=== PATIENT | female | born 1950 | race Caucasian/White ===

== ENCOUNTER → 2017-03-14 | Outpatient (CLI) | payer BC ==
[2017-03-14 10:03] LABS: ABSOLUTE BASOPHILS # (AUTO) 0.1 10^3/uL (0.0-0.2); ABSOLUTE EOSINOPHILS # (AUTO) 0.3 10^3/uL (0.0-0.6); ABSOLUTE LYMPHOCYTES (AUTO) 2.2 10^3/uL (0.5-4.7); ABSOLUTE MONOCYTES (AUTO) 0.4 10^3/uL (0.1-1.4); EOSINOPHILS % (AUTO) 4.2 % (0-6); HEMATOCRIT 40.8 % (36.0-47.0); HEMOGLOBIN 13.4 g/dL (12.0-15.5); HGB HCT DIFFERENCE -0.6; LYMPHOCYTES % (AUTO) 31.6 % (13-45); MEAN CORPUSCULAR HEMOGLOBIN 24.3 pg (27.0-33.4); MEAN CORPUSCULAR HGB CONC 32.9 g/dL (32.0-36.0); MEAN CORPUSCULAR VOLUME 74 fl (80-97); MONOCYTES % (AUTO) 6.2 % (3-13); RED BLOOD COUNT 5.52 10^6/uL (3.72-5.28); RED CELL DISTRIBUTION WIDTH 14.5 % (11.5-14.0); WHITE BLOOD COUNT 7.1 10^3/uL (4.0-10.5)
[2017-03-14 10:25] LABS: ALANINE AMINOTRANSFERASE 30 U/L (9-52); ALBUMIN 4.2 g/dL (3.5-5.0); ALKALINE PHOSPHATASE 82 U/L (38-126); ANION GAP 10 (5-19); ASPARTATE AMINO TRANSFERASE 25 U/L (14-36); BILIRUBIN,DIRECT 0.4 mg/dL (0.0-0.4); BILIRUBIN,TOTAL 0.7 mg/dL (0.2-1.3); BLOOD UREA NITROGEN 15 mg/dL (7-20); CALCIUM 10.7 mg/dL (8.4-10.2); CARBON DIOXIDE 29 mmol/L (22-30); CHLORIDE 102 mmol/L (98-107); CHOLESTEROL 237.78 mg/dL (0-200); Direct HDL 44 mg/dL (>40); GLUCOSE 108 mg/dL (75-110); POTASSIUM 3.9 mmol/L (3.6-5.0); SODIUM 140.9 mmol/L (137-145); TOTAL PROTEIN 7.1 g/dL (6.3-8.2); TRIGLYCERIDES 171 mg/dL (<150)
[2017-03-14 10:35] LABS: DIRECT LDL 151 mg/dL (<100)
[2017-03-14 10:41] LABS: VLDL CHOLESTEROL 34.2 mg/dL (10-31)
== END ==
LOC: OD 09:03
PROVIDERS: ATTEND Internal Medicine
DX: I10 Essential (primary) hypertension (principal); J44.9 Chronic obstructive pulmonary disease, unspecified; E11.9 Type 2 diabetes mellitus without complications; E78.5 Hyperlipidemia, unspecified; E03.9 Hypothyroidism, unspecified
CPT/HCPCS: 36415; 80053; 80061; 83036; 84443; 85025

== ENCOUNTER → 2017-05-20 | Outpatient (CLI) | payer BC ==
--- NOTE | 2017-05-20 17:33 | RADIOLOGY REPORT (SQ) ---
EXAM DESCRIPTION: VENOUS UNILATERAL LOWER COMPLETED DATE/TIME: 05/20/2017 5:25 pm REASON FOR STUDY: LLE PAIN/ SWELLING M79.662 PAIN IN LEFT LOWER LEG COMPARISON: 11/29/2013 TECHNIQUE: Dynamic and static leon scale and color images acquired of the left leg venous system. Se lected spectral images acquired with additional compression and augmentation maneuvers. The contralat eral common femoral vein and saphenofemoral junction were also imaged. Images stored on PACS. LIMITATIONS: None. FINDINGS: COMMON FEMORAL: Normal phasicity, compression and augmentation. No visualized echogenic ma terial on leon scale. No defects on color images. FEMORAL: Normal compression and augmentation. No visualized echogenic material on leon scale. No defe cts on color images. POPLITEAL: Normal compression, augmentation. No visualized echogenic material on leon scale. No defec ts on color images. CALF VESSELS: Normal compression, augmentation. No visualized echogenic material on leon scale. No de fects on color images. GSV and SSV: Normal compression, augmentation. No visualized echogenic material on leon scale. No def ects on color images. ANY DEEP VENOUS INSUFFICIENCY: Not evaluated. ANY EVIDENCE OF POPLITEAL CYST: No. OTHER: No other significant finding. CONTRALATERAL COMMON FEMORAL VEIN AND SAPHENOFEMORAL JUNCTION: Normal phasicity, compression and augmentation. No visualized echogenic material on leon scale. No de fects on color images. IMPRESSION: NO EVIDENCE OF DVT OR SVT IN THE LEFT LEG. TECHNICAL DOCUMENTATION: JOB ID: [id number] [employer]- All Rights Reserved
== END ==
LOC: SP 16:40
PROVIDERS: ATTEND Internal Medicine
DX: M79.662 Pain in left lower leg (principal); I82.402 Acute embolism and thrombosis of unspecified deep veins of left lower extremity
CPT/HCPCS: 93971

== ENCOUNTER 2019-02-26 19:19 | Inpatient (IN) | payer BC, MEDICARE ==
[2019-02-26] MEDS ORDERED: MORPHINE SULFATE 10 MG/ML INJ IV ONE (20:07)
[2019-02-26] MEDS ORDERED: ONDANSETRON HCL INJ/PF 4 MG/2 ML SDV IV ONE (20:07)
--- NOTE | 2019-02-26 20:09 | ER Document Report ---
ED Medical Screen (RME) - General Chief Complaint: Abdominal Pain Stated Complaint: ABDOMINAL PAIN Time Seen by Provider: 02/26/19 20:07 Primary Care Provider: JOHN CLANCY MD [Primary Care Provider] - Follow up as needed Mode of Arrival: Ambulatory Information source: Patient Notes: Patient presents complaining of lower abdominal pain that woke her up at 1:00 this morning. Patient complains of persistent lower pelvic pain and low back pain. Patient does complain of nausea. Patient denies any fever, vomiting, diarrhea or urinary symptoms. hx: Melanoma, diabetes, hypertension, hypothyroid, diverticulosis sx: Tonsillectomy, appendectomy, hysterectomy, cervical fusion, bowel resection, cholecystectomy I have greeted and performed a rapid initial assessment of this patient. A comprehensive ED assessment and evaluation of the patient, analysis of test results and completion of the medical decision making process will be conducted by additional ED providers. TRAVEL OUTSIDE OF THE [place] IN LAST 30 DAYS: No - Related Data Allergies/Adverse Reactions: amoxicillin trihydrate [From Augmentin] Allergy (Unknown, Verified 09/18/14 14:14) aspirin [Aspirin] Allergy (Unknown, Verified 09/18/14 14:14) Potassium Clavulanate * [From Augmentin] Allergy (Unknown, Verified 09/18/14 14:14) ivp contrast Allergy (Severe, Uncoded 09/18/14 14:14) rash / itching Past Medical History - Social History Chew tobacco use (# tins/day): No Frequency of alcohol use: None Drug Abuse: None - Past Medical History Cardiac Medical History: Reports: Hx Hypertension Pulmonary Medical History: Reports: Hx COPD - bronchiectasis Denies: Hx Tuberculosis Endocrine Medical History: Reports: Hx Diabetes Mellitus Type 2, Hx Hypothyroidism Renal/ Medical History: Denies: Hx Peritoneal Dialysis Past Surgical History: Reports: Hx Hysterectomy, Hx Tonsillectomy. Denies: Hx Pacemaker - Immunizations Hx Diphtheria, Pertussis, Tetanus Vaccination: Yes Physical Exam - Vital signs Vitals: Temp Pulse Resp BP Pulse Ox 98.4 F 94 20 180/94 H 93 02/26/19 19:26 02/26/19 19:26 02/26/19 19:26 02/26/19 19:26 02/26/19 19:26 - Abdominal Tenderness: Tender - Lower pelvic tenderness Course - Vital Signs Vital signs: Temp Pulse Resp BP Pulse Ox 98.4 F 94 20 180/94 H 93 02/26/19 19:26 02/26/19 19:26 02/26/19 19:26 02/26/19 19:26 02/26/19 19:26 Doctor's Discharge - Discharge Referrals: JOHN CLANCY MD [Primary Care Provider] - Follow up as needed
[2019-02-26 20:48] LABS: ABSOLUTE BASOPHILS # (AUTO) 0.1 10^3/uL (0.0-0.2); ABSOLUTE EOSINOPHILS # (AUTO) 0.3 10^3/uL (0.0-0.6); ABSOLUTE LYMPHOCYTES (AUTO) 2.7 10^3/uL (0.5-4.7); ABSOLUTE MONOCYTES (AUTO) 0.8 10^3/uL (0.1-1.4); ABSOLUTE NEUT (AUTO) 8.4 10^3/uL (1.7-8.2); EOSINOPHILS % (AUTO) 2.4 % (0-6); HEMATOCRIT 42.8 % (36.0-47.0); HEMOGLOBIN 13.8 g/dL (12.0-15.5); LYMPHOCYTES % (AUTO) 22.1 % (13-45); MEAN CORPUSCULAR HEMOGLOBIN 24.1 pg (27.0-33.4); MEAN CORPUSCULAR HGB CONC 32.4 g/dL (32.0-36.0); MEAN CORPUSCULAR VOLUME 75 fl (80-97); MONOCYTES % (AUTO) 6.5 % (3-13); PLATELET COUNT 365 10^3/uL (150-450); RED BLOOD COUNT 5.74 10^6/uL (3.72-5.28); RED CELL DISTRIBUTION WIDTH 14.2 % (11.5-14.0); TOTAL CELLS COUNTED % (AUTO) 100 %; WHITE BLOOD COUNT 12.4 10^3/uL (4.0-10.5)
[2019-02-26 21:03] LABS: APPEARANCE,URINE SLIGHTLY-CLOUDY; BILIRUBIN,URINE NEGATIVE (NEGATIVE); COLOR,URINE YELLOW; GLUCOSE, URINE NEGATIVE (NEGATIVE); KETONES,URINE NEGATIVE (NEGATIVE); LEUKOCYTE ESTERASE,URINE TRACE (NEGATIVE); NITRITE,URINE NEGATIVE (NEGATIVE); PROTEIN,URINE NEGATIVE (NEGATIVE); URINE SPECIFIC GRAVITY 1.015; UROBILINOGEN,URINE NEGATIVE mg/dL (<2.0)
[2019-02-26 21:06] LABS: ALANINE AMINOTRANSFERASE 22 U/L (9-52); ALBUMIN 4.5 g/dL (3.5-5.0); ALKALINE PHOSPHATASE 75 U/L (38-126); ANION GAP 12 (5-19); ASPARTATE AMINO TRANSFERASE 22 U/L (14-36); BILIRUBIN,DIRECT 0.4 mg/dL (0.0-0.4); BILIRUBIN,TOTAL 0.5 mg/dL (0.2-1.3); BLOOD UREA NITROGEN 12 mg/dL (7-20); CALCIUM 10.9 mg/dL (8.4-10.2); CARBON DIOXIDE 32 mmol/L (22-30); CHLORIDE 96 mmol/L (98-107); GLUCOSE 156 mg/dL (75-110); LIPASE 289.8 U/L (23-300); POTASSIUM 3.6 mmol/L (3.6-5.0); SODIUM 140.1 mmol/L (137-145); TOTAL PROTEIN 7.7 g/dL (6.3-8.2)
[2019-02-27] MEDS ORDERED: NORMAL SALINE 1000 ML 1,000 ML IV ONE (00:49)
[2019-02-27] MEDS ORDERED: ONDANSETRON HCL INJ/PF 4 MG/2 ML SDV IV ONE ×2 (00:49→04:47)
[2019-02-27] MEDS: MORPHINE SULFATE 10 MG/ML INJ IV PRN ×2 (00:55→03:49)
--- NOTE | 2019-02-27 00:59 | ER Document Report ---
ED General - General Chief Complaint: Abdominal Pain Stated Complaint: ABDOMINAL PAIN Time Seen by Provider: 02/26/19 20:07 Mode of Arrival: Ambulatory Notes: Patient is a 68-year-old female past medical history of hypertension, hypothyroidism, surgical history of cholecystectomy, partial bowel resection, hysterectomy, appendectomy, presents with complaints of roughly 24 hours of progressively worsening lower abdominal pain. Describes the pain as being gradual in onset, worsening since that time. Is a throbbing, severe, constant pain diffusely to the abdomen but worse in the lower abdomen. States that moving "almost anything" worsens the pain at this time. Nothing improves the pain. Denies a history of similar pains in the past. Has been nauseated but has not vomited. Has had a bowel movement within the past 24 hours that was nonbloody. TRAVEL OUTSIDE OF THE [place] IN LAST 30 DAYS: No - Related Data Allergies/Adverse Reactions: amoxicillin trihydrate [From Augmentin] Allergy (Unknown, Verified 09/18/14 14:14) aspirin [Aspirin] Allergy (Unknown, Verified 09/18/14 14:14) Potassium Clavulanate * [From Augmentin] Allergy (Unknown, Verified 09/18/14 14:14) ivp contrast Allergy (Severe, Uncoded 09/18/14 14:14) rash / itching Past Medical History - General Information source: Patient - Social History Smoking Status: Never Smoker Chew tobacco use (# tins/day): No Frequency of alcohol use: None Drug Abuse: None Lives with: Family Family History: Reviewed & Not Pertinent Patient has suicidal ideation: No Patient has homicidal ideation: No - Past Medical History Cardiac Medical History: Reports: Hx Hypercholesterolemia, Hx Hypertension Pulmonary Medical History: Reports: Hx COPD - bronchiectasis Denies: Hx Tuberculosis Endocrine Medical History: Reports: Hx Diabetes Mellitus Type 2, Hx Hypothyroidism Renal/ Medical History: Denies: Hx Peritoneal Dialysis GI Medical History: Reports: Hx Gastroesophageal Reflux Disease Musculoskeletal Medical History: Reports Hx Arthritis - RA Past Surgical History: Reports: Hx Abdominal Surgery - bowel resection, Hx Appendectomy, Hx Hysterectomy, Hx Orthopedic Surgery - spinal fusion, Hx Tonsillectomy. Denies: Hx Pacemaker - Immunizations Hx Diphtheria, Pertussis, Tetanus Vaccination: Yes Hx Pneumococcal Vaccination: 08/20/11 Review of Systems - Review of Systems Notes: Constitutional: Negative for fever. HENT: Negative for sore throat. Eyes: Negative for visual changes. Cardiovascular: Negative for chest pain. Respiratory: Negative for shortness of breath. Gastrointestinal: Positive for abdominal pain and nausea Genitourinary: Negative for dysuria. Musculoskeletal: Negative for back pain. Skin: Negative for rash. Neurological: Negative for headaches, weakness or numbness. 10 point ROS negative except as marked above and in HPI. Physical Exam - Vital signs Vitals: Temp Pulse Resp BP Pulse Ox 98.4 F 94 20 180/94 H 93 02/26/19 19:26 02/26/19 19:26 02/26/19 19:26 02/26/19 19:26 02/26/19 19:26 Interpretation: Hypertensive Notes: PHYSICAL EXAMINATION: GENERAL: Appears moderately unwell but in no acute distress HEAD: Atraumatic, normocephalic. EYES: Pupils equal round and reactive to light, extraocular movements intact, sclera anicteric, conjunctiva are normal. ENT: nares patent, oropharynx clear without exudates. Moist mucous membranes. NECK: Normal range of motion, supple without lymphadenopathy LUNGS: Breath sounds clear to auscultation bilaterally and equal. No wheezes rales or rhonchi. HEART: Regular rate and rhythm without murmurs ABDOMEN: Somewhat distended abdomen, firm particularly on palpation of the lower quadrants. Globally tender much more tender to the lower quadrants. No rebou nd. EXTREMITIES: Normal range of motion, no pitting or edema. No cyanosis. NEUROLOGICAL: No focal neurological deficits. Moves all extremities spontaneously and on command. PSYCH: Normal mood, normal affect. SKIN: Warm, Dry, normal turgor, no rashes or lesions noted. Course - Re-evaluation Re-evalutation: 02/27/19 00:59 Patient presents with generalized lower abdominal pain with some abdominal rigidity particularly in the right lower, suprapubic and left lower quadrants. Patient has a history of a cholecystectomy, appendectomy, and partial bowel resection secondary to diverticulitis. Differential at this point includes colonic rupture, intra-abdominal abscess, possible bowel obstruction although patient is not vomiting. Patient has anaphylactic reaction to intravenous contrast and iodine-based oral contrast. Given the degree of concern on her abdominal exam as well as no read available option to provide IV or oral contrast will proceed with CT without oral or IV contrast. Labs show leukocytosis, otherwise unremarkable. IV morphine, Zofran, fluids have all been initiated. Patient's last oral intake was approximately 9 hours ago. 02/27/19 03:12 CT scan of the abdomen pelvis does demonstrate findings consistent with a bowel obstruction. Patient is continually nauseated abdominal exam unchanged. I did discuss with the surgeon on-call Dr. Peter who is accepted the patient for evaluation and hospitalization. NG tube will be placed using Versed for sedation. - Vital Signs Vital signs: Temp Pulse Resp BP Pulse Ox 98.4 F 94 20 180/94 H 91 L 02/26/19 19:26 02/26/19 19:26 02/27/19 04:00 02/26/19 19:26 02/27/19 04:00 - Laboratory Result Diagrams: 02/26/19 20:21 02/26/19 20:21 Laboratory results interpreted by me: 02/26/19 02/26/19 02/26/19 20:21 20:21 20:21 WBC 12.4 H RBC 5.74 H MCV 75 L MCH 24.1 L RDW 14.2 H Absolute Neutrophils 8.4 H Chloride 96 L Carbon Dioxide 32 H Glucose 156 H Calcium 10.9 H Urine Blood SMALL H Ur Leukocyte Esterase TRACE H - Diagnostic Test Radiology reviewed: Reports reviewed Discharge - Discharge Clinical Impression: Lower abdominal pain, Nausea Bowel obstruction Qualifiers: Intestinal obstruction type: unspecified Intestinal obstruction extent: unspecified extent Qualified Code(s): K56.609 - Unspecified intestinal obstruction, unspecified as to partial versus complete obstruction Condition: Fair Disposition: ADMITTED INPATIENT Admitting Provider: Surgicalist Unit Admitted: Surgical Floor
--- NOTE | 2019-02-27 02:25 | RADIOLOGY REPORT (SQ) ---
EXAM DESCRIPTION: CT ABDOMEN PELVIS WITHOUT IV CONTRAST COMPLETED DATE/TME: 02/27/2019 00:49 CLINICAL HISTORY: 68 years, Female, diffuse abdominal pain, abdominal rigidity COMPARISON: 12/24/2010 TECHNIQUE: Axial CT images of the abdomen and pelvis were obtained without contrast. Sagittal and coronal reformats were performed. DLP 790 Images stored on PACS. All CT scanners at this facility use dose modulation, iterative reconstruction, and/or weight based dosing when appropriate to reduce radiation dose to as low as reasonably achievable (ALARA). [facility]: Dose Right [facility]: CareDose [facility]: Dose Right [facility]: Teradose 4D [facility]: [employer] LIMITATIONS: None. FINDINGS: The lung bases are clear. Cholecystectomy. The liver, pancreas, spleen, and adrenal glands are unremarkable. There is a nonobstructing calcification along the upper pole of the right kidney. There are left renal cysts that measure up to 2.2 cm in size. No evidence of hydronephrosis bilaterally. There is no intraperitoneal free air or fluid. There is no lymphadenopathy. The abdominal aorta is normal in caliber. The stomach is unremarkable. There are dilated loops of small bowel along the left side of the abdomen which measure up to 3.9 cm in diameter. The appendix is not uniquely identified. The colon is incompletely distended. There are postsurgical changes to the rectosigmoid junction. The urinary bladder is unremarkable. Hysterectomy. There are no lytic or blastic bone lesions. IMPRESSION: Small bowel obstruction. TECHNICAL DOCUMENTATION: Quality ID # 436: Final reports with documentation of one or more dose reduction techniques (e.g., Automated exposure control, adjustment of the mA and/or kV according to patient size, use of iterative reconstruction technique) copyright 2011 [employer]- All Rights Reserved
[2019-02-27] MEDS ORDERED: MIDAZOLAM 2 MG/2 ML INJ IV ONE (02:48)
--- NOTE | 2019-02-27 04:23 | RADIOLOGY REPORT (SQ) ---
EXAM DESCRIPTION: XR CHEST 1 VIEW COMPLETED DATE/TME: 02/27/2019 00:00 CLINICAL HISTORY: 68 years Female, NG Tube Placement COMPARISON: January 24, 2016. TECHNIQUE/LIMITATION: Targeted exam for enteric tube assessment. FINDINGS: Adequate appearing enteric tube with tip at the right upper abdomen involving a left upper abdominal course. IMPRESSION: Enteric tube.
[2019-02-27] MEDS ORDERED: ONDANSETRON HCL INJ/PF 4 MG/2 ML SDV ONE (04:40)
--- NOTE | 2019-02-27 05:02 | PDOC H&P ---
History of Present Illness Admission Date/PCP: 02/27/19 03:30 JOHN CLANCY MD Patient complains of: abdominal pains History of Present Illness: ELISA GIVENS is a 68 year old female with history of DM, Howard's Disease alternating with Grave's Disease and multiple abdominal operations (colon resection for diverticulitis,appendectomy,lap cholecystectomy,hysterectomy) woke from sleep at 1 a.m. 02/26/19 because of severe abdominal pains (crampy) wit h nausea. Had BM at that time. Went to ED and had CT scan which showed SBO.NGT inserted with a little relief but still requiring pain meds. Denies fever,chills or vomiting. Past Medical History Cardiac Medical History: Reports: Hyperlipidema, Hypertension Pulmonary Medical History: Reports: Chronic Obstructive Pulmonary Disease (COPD) - bronchiectasis Denies: Tuberculosis Endocrine Medical History: Reports: Diabetes Mellitus Type 2, Hypothyroidism GI Medical History: Reports: Gastroesophageal Reflux Disease Musculoskeltal Medical History: Reports: Arthritis - RA Past Surgical History Past Surgical History: Reports: Appendectomy, Hysterectomy, Orthopedic Surgery - spinal fusion, Tonsillectomy, Other - colon resection for Diverticulitis in by Dr Rodas. Denies: Pacemaker Social History Smoking Status: Former Smoker - Stopped 15 years ago Frequency of Alcohol Use: None Hx Recreational Drug Use: No Hx Prescription Drug Abuse: No Family History Family History: Reviewed & Not Pertinent Parental Family History Reviewed: Yes - Father from colon ca. Children Family History Reviewed: No Sibling(s) Family History Reviewed.: Yes - Brother had colon ca. Family has Argueta syndrome but patient tested negative Medication/Allergy Home Medications: RX: Hydrocodone Bit/Acetaminophen [Vicodin 5-500 mg Tablet ([facility] Only)] 1 tab PO Q6HP PRN 04/20/12 RX: Liraglutide [Victoza 3-David] 12.5 mg SQ DAILY 04/20/12 RX: Meclizine HCl [Antivert 12.5 mg Tablet] 12.5 mg PO Q8HP PRN 04/20/12 RX: Albuterol Sulfate [Ventolin HFA MDI 18 GM] 2 puff IH Q4H PRN 09/18/14 RX: Atenolol [Tenormin 50 mg Tablet] 50 mg PO QHS 09/18/14 RX: Dexlansoprazole [Dexilant 60 mg Capsule] 60 mg PO DAILY 09/18/14 RX: Levothyroxine Sodium [Tirosint] 75 mcg PO DAILY 09/18/14 RX: Ondansetron HCl [Zofran 4 mg Tablet] 1 tab PO Q4H PRN 09/18/14 RX: Triamterene/Hydrochlorothiazid [Triamterene-Hctz 37.5-25 mg Cp] 1 each PO DAILY 09/18/14 RX: Butalb/Acetaminophen/Caffeine [Fioricet (50-325-40 mg) Tablet] 1 tab PO Q4HP PRN #60 each 09/23/14 RX: Doxycycline Hyclate [Vibramycin 100 mg Tablet] 100 mg PO Q12 #14 tablet 09/23/14 RX: Levofloxacin [Levaquin 500 mg Tablet] 500 mg PO DAILY #7 tablet 09/23/14 RX: Potassium Chloride [Klor-Con 10 Meq Capsule ER] 20 meq PO Q12 #20 tablet.sa 09/23/14 Allergies/Adverse Reactions: amoxicillin trihydrate [From Augmentin] Allergy (Unknown, Verified 09/18/14 14:14) aspirin [Aspirin] Allergy (Unknown, Verified 09/18/14 14:14) Potassium Clavulanate * [From Augmentin] Allergy (Unknown, Verified 09/18/14 14:14) ivp contrast Allergy (Severe, Uncoded 09/18/14 14:14) rash / itching Review of Systems Constitutional: PRESENT: as per HPI Eyes: PRESENT: other - no visual/hearing changes Nose, Mouth, and Throat: PRESENT: other - no headache Cardiovascular: PRESENT: other - no chest pains Respiratory: PRESENT: cough Gastrointestinal: PRESENT: abdominal pain, nausea Genitourinary: PRESENT: other - no dysuria Physical Exam Vital Signs: Temp Pulse Resp BP Pulse Ox 98.4 F 94 20 180/94 H 91 L 02/26/19 19:26 02/26/19 19:26 02/27/19 04:00 02/26/19 19:26 02/27/19 04:00 Intake & Output 02/25/19 02/26/19 02/27/19 06:59 06:59 06:59 Intake Total 1000 Balance 1000 Weight 87.3 kg General appearance: PRESENT: obese, severe distress Head exam: PRESENT: atraumatic Eye exam: PRESENT: conjunctiva pink Mouth exam: PRESENT: moist Neck exam: PRESENT: full ROM Respiratory exam: PRESENT: clear to auscultation farzana Cardiovascular exam: PRESENT: RRR Pulses: PRESENT: normal radial pulses GI/Abdominal exam: PRESENT: tenderness - diffuse Rectal exam: PRESENT: deferred Extremities exam: PRESENT: full ROM Musculoskeletal exam: PRESENT: ambulatory Neurological exam: PRESENT: alert, oriented to person, oriented to place, oriented to time, oriented to situation Psychiatric exam: PRESENT: appropriate affect Skin exam: PRESENT: normal color, warm Results Laboratory Results: 02/26/19 20:21 02/26/19 20:21 02/26/19 02/26/19 02/26/19 20:21 20:21 20:21 WBC 12.4 H RBC 5.74 H Hgb 13.8 Hct 42.8 MCV 75 L MCH 24.1 L MCHC 32.4 RDW 14.2 H Plt Count 365 Seg Neutrophils % 68.0 Lymphocytes % 22.1 Monocytes % 6.5 Eosinophils % 2.4 Basophils % 1.0 Absolute Neutrophils 8.4 H Absolute Lymphocytes 2.7 Absolute Monocytes 0.8 Absolute Eosinophils 0.3 Absolute Basophils 0.1 Sodium 140.1 Potassium 3.6 Chloride 96 L Carbon Dioxide 32 H Anion Gap 12 BUN 12 Creatinine 0.87 Est GFR ( Amer) > 60 Est GFR (Non-Af Amer) > 60 Glucose 156 H Calcium 10.9 H Total Bilirubin 0.5 AST 22 ALT 22 Alkaline Phosphatase 75 Total Protein 7.7 Albumin 4.5 Lipase 289.8 Urine Color YELLOW Urine Appearance SLIGHTLY-CLOUDY Urine pH 6.0 Ur Specific [place] 1.015 Urine Protein NEGATIVE Urine Glucose (UA) NEGATIVE Urine Ketones NEGATIVE Urine Blood SMALL H Urine Nitrite NEGATIVE Ur Leukocyte Esterase TRACE H Urine WBC (Auto) 4 Urine RBC (Auto) 5 Impressions: Chest X-Ray 02/27/19 00:00 IMPRESSION: Enteric tube. Abdomen/Pelvis CT 02/27/19 00:49 IMPRESSION: Small bowel obstruction. TECHNICAL DOCUMENTATION: Quality ID # 436: Final reports with documentation of one or more dose reduction techniques (e.g., Automated exposure control, adjustment of the mA and/or kV according to patient size, use of iterative reconstruction technique) copyright 2011 [employer]- All Rights Reserved Assessment & Plan - Diagnosis (1) Bowel obstruction Qualifiers: Intestinal obstruction type: unspecified Intestinal obstruction extent: unspecified extent Qualified Code(s): K56.609 - Unspecified intestinal obstruction, unspecified as to partial versus complete obstruction Is this a current diagnosis for this admission?: Yes (2) Lower abdominal pain Is this a current diagnosis for this admission?: Yes (3) Nausea Is this a current diagnosis for this admission?: Yes (4) COPD (chronic obstructive pulmonary disease) Is this a current diagnosis for this admission?: Yes (5) Diabetes mellitus Is this a current diagnosis for this admission?: Yes - Time Time Spent: 30 to 50 Minutes - Inpatient Certification Medical Necessity: Need For IV Fluids, Need for Pain Control, Need for Surgery - Plan Summary Plan Summary: NGT Hydrate SBFT with gastrograffin May need EXploratory laparotomy for SBO due to adhesions
[2019-02-27] MEDS ORDERED: NORMAL SALINE 500 ML IV ONE (05:03)
[2019-02-27] MEDS ORDERED: GLUCAGON,HUMAN RECOMB 1 MG INJ SUBCUT PRN (05:03)
[2019-02-27] MEDS ORDERED: DEXTROSE 40% GEL 15 GM TUBE PO PRN ×2 (05:03)
[2019-02-27] MEDS ORDERED: MORPHINE SULFATE 10 MG/ML INJ IV PRN (05:03)
[2019-02-27] MEDS ORDERED: DEXTROSE 50%-WATER 25 GM/50 ML DISP.SYRIN IV PRN ×2 (05:03)
[2019-02-27] MEDS: ONDANSETRON HCL INJ/PF 4 MG/2 ML SDV IV PRN ×3 (06:40→19:36)
[2019-02-27] MEDS ORDERED: DIPHENHYDRAMINE HCL 50 MG/ML VIAL ONE (11:10)
[2019-02-27] MEDS ORDERED: METHYLPREDNISOLONE INJ 125 MG/2 ML SDV ONE (11:10)
[2019-02-27] MEDS ORDERED: FAMOTIDINE INJ/PF 20 MG/2 ML SDV IV ONE (11:11)
--- NOTE | 2019-02-27 11:18 | PDOC PROGRESS REPORT ---
Subjective Progress Note for:: 02/27/19 Subjective:: Patient states she feels some better; nasogastric tube inserted, removed, then reinserted. It is a very small caliber tube draining minimal. She denies history of trauma, previous small bowel obstruction, interval bowel movement or flatus. Reason For Visit: BOWEL OBSTRUCTION, DM,COPD,CHRISTIANO'S DISEASE Physical Exam Vital Signs: Temp Pulse Resp BP Pulse Ox 98.3 F 84 20 145/65 H 92 02/27/19 07:34 02/27/19 07:34 02/27/19 07:34 02/27/19 07:34 02/27/19 07:34 Intake & Output 02/26/19 02/27/19 02/28/19 06:59 06:59 06:59 Intake Total 1500 Balance 1500 Weight 87.3 kg 90.174 kg General appearance: PRESENT: mild distress Head exam: PRESENT: normocephalic GI/Abdominal exam: PRESENT: other - Slightly distended, diffusely tender; Results Laboratory Results: 02/26/19 20:21 02/26/19 20:21 02/26/19 02/26/19 02/26/19 20:21 20:21 20:21 WBC 12.4 H RBC 5.74 H Hgb 13.8 Hct 42.8 MCV 75 L MCH 24.1 L MCHC 32.4 RDW 14.2 H Plt Count 365 Seg Neutrophils % 68.0 Lymphocytes % 22.1 Monocytes % 6.5 Eosinophils % 2.4 Basophils % 1.0 Absolute Neutrophils 8.4 H Absolute Lymphocytes 2.7 Absolute Monocytes 0.8 Absolute Eosinophils 0.3 Absolute Basophils 0.1 Sodium 140.1 Potassium 3.6 Chloride 96 L Carbon Dioxide 32 H Anion Gap 12 BUN 12 Creatinine 0.87 Est GFR ( Amer) > 60 Est GFR (Non-Af Amer) > 60 Glucose 156 H Calcium 10.9 H Total Bilirubin 0.5 AST 22 ALT 22 Alkaline Phosphatase 75 Total Protein 7.7 Albumin 4.5 Lipase 289.8 Urine Color YELLOW Urine Appearance SLIGHTLY-CLOUDY Urine pH 6.0 Ur Specific [place] 1.015 Urine Protein NEGATIVE Urine Glucose (UA) NEGATIVE Urine Ketones NEGATIVE Urine Blood SMALL H Urine Nitrite NEGATIVE Ur Leukocyte Esterase TRACE H Urine WBC (Auto) 4 Urine RBC (Auto) 5 Impressions: Chest X-Ray 02/27/19 00:00 IMPRESSION: Enteric tube. Abdomen/Pelvis CT 02/27/19 00:49 IMPRESSION: Small bowel obstruction. TECHNICAL DOCUMENTATION: Quality ID # 436: Final reports with documentation of one or more dose reduction techniques (e.g., Automated exposure control, adjustment of the mA and/or kV according to patient size, use of iterative reconstruction technique) copyright 2011 [employer]- All Rights Reserved Assessment & Plan - Diagnosis (1) Bowel obstruction Qualifiers: Intestinal obstruction type: unspecified Intestinal obstruction extent: unspecified extent Qualified Code(s): K56.609 - Unspecified intestinal obstruction, unspecified as to partial versus complete obstruction Is this a current diagnosis for this admission?: Yes Plan: Impression: Acute abdominal pain, CT scan findings without oral contrast suggestive of possible small bowel obstruction. Age. No flatus or stool reported. Recommendations: 1. Patient will undergo upper GI with small bowel follow-through. The rationale for this was discussed with the patient and her daughter. 2. We will keep n.p.o. on IV fluids. 3. We will stop all narcotics; the rationale for this was explained to the patient and her daughter. We will substitute Toradol. (2) Lower abdominal pain Is this a current diagnosis for this admission?: Yes (3) Nausea Is this a current diagnosis for this admission?: Yes (4) COPD with acute exacerbation Is this a current diagnosis for this admission?: Yes (5) Diabetes mellitus Qualifiers: Diabetes mellitus type: type 2 Is this a current diagnosis for this admission?: Yes
--- NOTE | 2019-02-27 13:13 | RADIOLOGY REPORT (SQ) ---
EXAM DESCRIPTION: UPPER GI/SM BOWEL COMPLETED DATE/TIME: 02/27/2019 1:01 pm REASON FOR STUDY: to check site of obstruction COMPARISON: None. TECHNIQUE: Under fluoroscopic guidance, patient ingested water soluble contrast. Fluoroscopic spot images and routine radiographic images acquired and stored on PACS. Following evaluation of esophagus and stomach, additional barium administered with serial delayed abd ominal radiographs until colonic identification. Fluoroscopic images recorded of the terminal ileum. 12 MM BARIUM TABLET GIVEN: No. FLUOROSCOPY TIME: 2 minutes 7 seconds 18 images saved to PACS. LIMITATIONS: NG tube in place. Upper esophagus and not evaluated FINDINGS: NEUROMUSCULAR COORDINATION OF SWALLOW: Not evaluated. ESOPHAGEAL MOTILITY: Not evaluated 12 MM TABLET TRANSIT TIME: Not evaluated ESOPHAGEAL MUCOSA: Not evaluated due to NG-tube GASTRO-ESOPHAGEAL JUNCTION: Not evaluated STOMACH: NG tube in place, Normal without masses or ulcerations. GASTRIC OUTLET: No delay in emptying. Normal pylorus. DUODENAL BULB: Normal distention. No spasm or ulceration. DUODENUM: Mucosa normal. No extrinsic masses or malrotation. PROXIMAL SMALL BOWEL: Normal as visualized. JEJUNUM: Normal mucosal pattern. No dilatation, segmentation, strictures or masses. ILEUM: Normal mucosal pattern. No dilatation, segmentation, strictures or masses. TERMINAL ILEUM AND ILEO-CECAL VALVE: Normal mucosal pattern without cobble-stoning or stricture. Nor mal compression. PROXIMAL COLON: Incompletely imaged. No abnormality. NON-GI TRACT STRUCTURES: Surgical clips in the right upper quadrant OTHER: No other significant finding. IMPRESSION: NG tube in place. Esophagus not evaluated due to NG-tube placement. No delay in passag e of contrast. Patient had bowel movement prior to the end study COMMENT: Quality ID 145: Final reports for procedures using fluoroscopy that document radiation exp osure indices, or exposure time and number of fluorographic images (if radiation exposure indices are not available) TECHNICAL DOCUMENTATION: JOB ID: [id number] [employer]- All Rights Reserved Reading location - IP/workstation name: [email or web address]
[2019-02-27] MEDS: NORMAL SALINE 1000 ML 1,000 ML IV PRN ×2 (13:34→19:28)
[2019-02-27] MEDS: KETOROLAC TROMETHAMINE INJ/PF 30 MG/1 ML SDV IV PRN ×2 (13:36→19:36)
[2019-02-28] MEDS: NORMAL SALINE 1000 ML 1,000 ML IV PRN (04:20)
[2019-02-28] MEDS: KETOROLAC TROMETHAMINE INJ/PF 30 MG/1 ML SDV IV PRN ×2 (08:11→13:55)
--- NOTE | 2019-02-28 11:08 | PDOC PROGRESS REPORT ---
Subjective Progress Note for:: 02/28/19 Subjective:: States she is still having some abdominal pain. Patient completed upper GI with small bowel follow-through yesterday which showed no delay of contrast; apparently she did have a bowel movement. Reason For Visit: BOWEL OBSTRUCTION, DM,COPD,CHRISTIANO'S DISEASE Physical Exam Vital Signs: Temp Pulse Resp BP Pulse Ox 98.1 F 93 18 117/55 L 94 02/28/19 08:00 02/28/19 08:00 02/28/19 08:00 02/28/19 08:00 02/28/19 08:00 Intake & Output 02/27/19 02/28/19 03/01/19 06:59 06:59 06:59 Intake Total 1500 2180 Balance 1500 2180 Weight 87.3 kg 90.174 kg General appearance: PRESENT: no acute distress GI/Abdominal exam: PRESENT: other - Abdomen is much less distended. There are no peritoneal signs no rigidity Results Laboratory Results: 02/26/19 20:21 02/26/19 20:21 Impressions: Chest X-Ray 02/27/19 00:00 IMPRESSION: Enteric tube. Abdomen/Pelvis CT 02/27/19 00:49 IMPRESSION: Small bowel obstruction. TECHNICAL DOCUMENTATION: Quality ID # 436: Final reports with documentation of one or more dose reduction techniques (e.g., Automated exposure control, adjustment of the mA and/or kV according to patient size, use of iterative reconstruction technique) copyright 2011 [employer]- All Rights Reserved Upper GI and Small Bowel X-Ray 02/27/19 05:05 IMPRESSION: NG tube in place. Esophagus not evaluated due to NG-tube placement. No delay in passage of contrast. Patient had bowel movement prior to the end study Assessment & Plan - Diagnosis (1) Bowel obstruction Qualifiers: Intestinal obstruction type: unspecified Intestinal obstruction extent: unspecified extent Qualified Code(s): K56.609 - Unspecified intestinal obstruction, unspecified as to partial versus complete obstruction Is this a current diagnosis for this admission?: Yes Plan: Impression: Partial small bowel obstruction resolved; no indication for surgical intervention. Recommendations: 1. We will start diet, advance as tolerated 2. Anticipate discharge home later today. (2) Lower abdominal pain Is this a current diagnosis for this admission?: Yes (3) Nausea Is this a current diagnosis for this admission?: Yes (4) COPD with acute exacerbation Is this a current diagnosis for this admission?: Yes (5) Diabetes mellitus Qualifiers: Diabetes mellitus type: type 2 Is this a current diagnosis for this admission?: Yes
[2019-02-28 13:13] LABS: AMORPHOUS SEDIMENT,URINE TRACE /HPF; APPEARANCE,URINE TURBID; BILIRUBIN,URINE NEGATIVE (NEGATIVE); GLUCOSE, URINE NEGATIVE (NEGATIVE); KETONES,URINE NEGATIVE (NEGATIVE); LEUKOCYTE ESTERASE,URINE SMALL (NEGATIVE); NITRITE,URINE NEGATIVE (NEGATIVE); PROTEIN,URINE 30 mg/dL (NEGATIVE); UROBILINOGEN,URINE NEGATIVE mg/dL (<2.0)
[2019-02-28 13:14] LABS: COLOR,URINE YELLOW
[2019-02-28 15:52] VITALS: BP 117/55
--- NOTE | 2019-03-01 09:44 | DISCHARGE SUMMARY E ---
Discharge Summary NAME: ELISA GIVENS : 1950 AGE: 68Y ADMITTED: 02/27/2019 DISCHARGED: 02/28/2019 SUMMARY OF HOSPITALIZATION: The patient is a 68-year-old white female with a history of diabetes mellitus, Howard's disease, sigmoid colon resection for diverticular disease, and other intra-abdominal operations. She presents to the emergency department with acute onset of crampy abdominal pain. She was evaluated in the emergency department where she was found by CT scan of the abdomen and pelvis to have a possible small bowel obstruction. She was admitted to the surgicalist service for further care. Please see her admission history and physical for complete documentation. The patient was kept n.p.o. on IV fluids and had a nasogastric tube inserted. She clinically improved. Her CT scan was not performed with oral contrast, so she underwent a Gastrografin contrast study through the NG tube, which showed no evidence of small bowel obstruction. The nasogastric tube was removed, and over the next 24 hours, the patient was started on a diet. This was advanced and tolerated well. She did have bowel movements. She also had very dark urine and this was sent for analysis and showed no evidence of infection. By the second hospital day, she was felt to receive maximum benefit from the hospitalization with discharge home. FINAL DIAGNOSIS: Ileus, resolved, status post nasogastric decompression, nonoperative management. DISPOSITION: The patient will be discharged home to the care of family. Follow up with her primary care physician as previously scheduled; she can follow up with [facility] or the hospital on a p.r.n. basis. DICTATING PHYSICIAN: LATESHA FLORES M.D. [id number] Y#: [id number] ID: [id number] JOB#: [id number] ACCT: [id number] cc:LATESHA FLORES M.D. [facility],
== END 2019-02-28 15:30 | disposition home or self-care (01) | DRG 390 ==
LOC: ER 19:19 → EH 02-27 03:30 → 4N 02-27 07:33
PROVIDERS: ATTEND Surgery
PROC: 0D9670Z Drainage of Stomach with Drainage Device, Via Natural or Artificial Opening (ICD-10-PCS; principal; 2019-02-27)
DX: K56.690 Other partial intestinal obstruction (principal); E06.3 Autoimmune thyroiditis; E05.00 Thyrotoxicosis with diffuse goiter without thyrotoxic crisis or storm; Z90.49 Acquired absence of other specified parts of digestive tract; E78.5 Hyperlipidemia, unspecified; I10 Essential (primary) hypertension; J44.9 Chronic obstructive pulmonary disease, unspecified; K21.9 Gastro-esophageal reflux disease without esophagitis; M06.9 Rheumatoid arthritis, unspecified; Z90.710 Acquired absence of both cervix and uterus; Z87.891 Personal history of nicotine dependence; Z80.0 Family history of malignant neoplasm of digestive organs; Z88.1 Allergy status to other antibiotic agents; Z88.6 Allergy status to analgesic agent; Z91.041 Radiographic dye allergy status
CPT/HCPCS: 36415; 71045; 74176; 74249; 80053; 81001; 83690; 85025; 87086; 87088; 87186; 96361; 96374; 96375; 96376; 99285; J1200; J1885; J2250; J2270; J2405; J2930; J7030; J7040; S0028

== ENCOUNTER → 2019-06-07 | Outpatient (CLI) | payer BC, MEDICARE ==
[2019-06-07 11:26] LABS: ABSOLUTE BASOPHILS # (AUTO) 0.1 10^3/uL (0.0-0.2); ABSOLUTE EOSINOPHILS # (AUTO) 0.4 10^3/uL (0.0-0.6); ABSOLUTE LYMPHOCYTES (AUTO) 2.8 10^3/uL (0.5-4.7); ABSOLUTE MONOCYTES (AUTO) 0.6 10^3/uL (0.1-1.4); ABSOLUTE NEUT (AUTO) 5.2 10^3/uL (1.7-8.2); BASOPHILS % (AUTO) 1.4 % (0-2); HEMATOCRIT 40.6 % (36.0-47.0); HEMOGLOBIN 13.2 g/dL (12.0-15.5); LYMPHOCYTES % (AUTO) 30.7 % (13-45); MEAN CORPUSCULAR HEMOGLOBIN 24.4 pg (27.0-33.4); MEAN CORPUSCULAR HGB CONC 32.4 g/dL (32.0-36.0); MEAN CORPUSCULAR VOLUME 75 fl (80-97); MONOCYTES % (AUTO) 6.3 % (3-13); PLATELET COUNT 327 10^3/uL (150-450); RED CELL DISTRIBUTION WIDTH 15.3 % (11.5-14.0); SEGMENTED NEUTROPHILS % (AUTO) 57.6 % (42-78); TOTAL CELLS COUNTED % (AUTO) 100 %
[2019-06-07 11:56] LABS: C-REACTIVE PROTEIN 14.7 mg/L (<10.0); URIC ACID 10.3 mg/dL (2.5-7.5)
[2019-06-07 12:16] LABS: ERYTHROCYTE SEDIMENTATION RATE 27 mm/hr (0-30)
== END ==
LOC: OD 10:49
PROVIDERS: ATTEND Orthopaedic Surgery Hand Surgery
DX: M18.12 Unilateral primary osteoarthritis of first carpometacarpal joint, left hand (principal); M25.531 Pain in right wrist; M79.641 Pain in right hand; G56.02 Carpal tunnel syndrome, left upper limb
CPT/HCPCS: 36415; 84443; 84550; 85025; 85652; 86038; 86140; 86200; 86430

== ENCOUNTER → 2019-09-23 | Outpatient (CLI) | payer BC, MEDICARE ==
[2019-09-23 14:53] LABS: ABSOLUTE BASOPHILS # (AUTO) 0.1 10^3/uL (0.0-0.2); ABSOLUTE EOSINOPHILS # (AUTO) 0.3 10^3/uL (0.0-0.6); ABSOLUTE LYMPHOCYTES (AUTO) 2.8 10^3/uL (0.5-4.7); ABSOLUTE MONOCYTES (AUTO) 0.5 10^3/uL (0.1-1.4); ABSOLUTE NEUT (AUTO) 4.2 10^3/uL (1.7-8.2); BASOPHILS % (AUTO) 1.2 % (0-2); EOSINOPHILS % (AUTO) 3.7 % (0-6); HEMATOCRIT 37.1 % (36.0-47.0); LYMPHOCYTES % (AUTO) 35.7 % (13-45); MEAN CORPUSCULAR HEMOGLOBIN 23.9 pg (27.0-33.4); MEAN CORPUSCULAR HGB CONC 32.3 g/dL (32.0-36.0); MEAN CORPUSCULAR VOLUME 74 fl (80-97); MONOCYTES % (AUTO) 6.2 % (3-13); PLATELET COUNT 311 10^3/uL (150-450); RED BLOOD COUNT 5.01 10^6/uL (3.72-5.28); RED CELL DISTRIBUTION WIDTH 15.6 % (11.5-14.0); SEGMENTED NEUTROPHILS % (AUTO) 53.2 % (42-78); TOTAL CELLS COUNTED % (AUTO) 100 %; WHITE BLOOD COUNT 7.8 10^3/uL (4.0-10.5)
[2019-09-23 15:10] LABS: ALBUMIN 4.4 g/dL (3.5-5.0); ALKALINE PHOSPHATASE 70 U/L (38-126); ANION GAP 12 (5-19); ASPARTATE AMINO TRANSFERASE 20 U/L (14-36); BILIRUBIN,DIRECT 0.2 mg/dL (0.0-0.4); BILIRUBIN,TOTAL 0.4 mg/dL (0.2-1.3); BLOOD UREA NITROGEN 11 mg/dL (7-20); CALCIUM 10.1 mg/dL (8.4-10.2); CARBON DIOXIDE 29 mmol/L (22-30); CHLORIDE 99 mmol/L (98-107); GLUCOSE 135 mg/dL (75-110); POTASSIUM 3.2 mmol/L (3.6-5.0); TOTAL PROTEIN 7.5 g/dL (6.3-8.2); URIC ACID 9.6 mg/dL (2.5-7.5)
== END ==
LOC: OD 14:17
PROVIDERS: ATTEND Internal Medicine
DX: E79.0 Hyperuricemia without signs of inflammatory arthritis and tophaceous disease (principal); I10 Essential (primary) hypertension; R53.83 Other fatigue
CPT/HCPCS: 36415; 80053; 84550; 85025

== ENCOUNTER → 2019-10-14 | Outpatient (CLI) | payer BC, MEDICARE ==
--- NOTE | 2019-10-14 10:25 | RADIOLOGY REPORT (SQ) ---
EXAM DESCRIPTION: COOKIE SWALLOW COMPLETED DATE/TIME: 10/14/2019 9:00 am REASON FOR STUDY: BARRETTS ESOPHAGUS (K22.70), DYSPHAGIA (R13.12) K22.70 CORTEZ'S ESOPHAGUS WITHOU T DYSPLASIA R13.12 DYSPHAGIA, OROPHARYNGEAL PHASE COMPARISON: None. TECHNIQUE: Videofluoroscopic swallowing examination was performed in conjunction with speech patholo gy. Videofluoroscopic imaging was obtained and reviewed and these are the findings: RADIATION DOSE: 1 minutes 41 seconds of fluoroscopy was used 1 images saved to PACS. LIMITATIONS: None FINDINGS: The patient was brought into the fluoro room and placed upright on a modified barium swall ow chair. The patient was then given multiple consistencies mixed with barium to swallow under live fluoroscopic video guidance. According to the Speech Pathologist there was no penetration or aspirat ion. IMPRESSION: NO EVIDENCE OF PENETRATION OR ASPIRATION. PLEASE SEE SPEECH PATHOLOGIST REPORT FOR OTHER FINDINGS AND RECOMMENDATIONS. COMMENT: Quality ID 145: Final reports for procedures using fluoroscopy that document radiation exp osure indices, or exposure time and number of fluorographic images (if radiation exposure indices are not available) TECHNICAL DOCUMENTATION: JOB ID: [id number] [employer]- All Rights Reserved Reading location - IP/workstation name: [email or web address] [id number]
--- NOTE | 2019-10-14 20:39 | ST Modified Barium Swallow ---
Recommendation - Recommendations Recommendations: Recommend follow up with GI and possible Barium Swallow Study Medical Diagnoses - Medical Diagnoses Medical Diagnosis Description & ICD-10 Code(s): Schrader's Esophagus Other Medical Diagnoses/Co-Morbidities: GERD - ICD-10 Tx Diagnosis Coding (1) Dysphagia ICD-10 Code(s): R13.10 - DYSPHAGIA, UNSPECIFIED ST Modified Barium Swallow - General Date: 10/14/19 Referring Physician: Mallory Chase MD Risks/Precautions: Aspiration - general, Other - esophageal Date of Onset: 04/14/19 - approximately 6 months ago - History History obtained from: Patient - Per patient: Patient is a 69 year old female with a history of reflux, anterior cervical fusion (in 1997), Schrader's Esophagus. Patient reports initial deficits with GERD began "years ago." Further, patient reports history of pneumonia. Patient describes difficulty swallowing as globus sensation and choking sensations that occurs inconsistnently. Most regularly swallowing seficits occur with pills. Patient reports allergies to IVP and augmentin. Medications: tunormen, Hetz, Decilin (for GERD), Caraphate (for GERD), Rybolsis Allergies: IVP, Augmentin - Functional Status Prior Functional Status: INDEPENDENT: communication, feeding - Subjective Patient/caregiver goal(s): safe swallow, r/o struct. abnormality Cognitive-Linguistic Function: WNL Speech Intelligibility: WNL Current Nutritional Means: PO Current PO diet: Regular Current symptoms: Coughing, Pneumonia, c/o Globus sensation Pain: 3/5 - Objective Assessment: Upright - Food Trials Used Food trials used: Thin liquids, Pureed, Regular The patient: Was Able to Self Feed - Oral-Motor Skills Dentition: Full Velo-pharyngeal function: Unremarkable Laryngeal Function: Volitional Cough, Volitional Swallow - Assessment Oral prep: Normal Labial closure: Adequate Leakage: None Mastication: Adequate Lingual Movement: Normal Oral stage: Normal for this Procedure - efficient and complete mastication, propulsion, and clearance. - Pharyngeal Stage Initiation of Pharyngeal Stage Reflex: Normal Decreased laryngeal elevation: No Reduced Velopharyngeal Closure: no Reduced pressure generation: No reduced tongue-based retraction: No Pre-swallow pooling in valleculae: Mild Pre-Swallow pooling in pyriforms: None Reduced Thyro-Hyoid approximation: No Reduced epiglottic excursion: No Reduced pharyngeal peristalsis/contraction: No Multiple Swallows with: Effective Post-swallow residulas vallecular: Mild Post-Swallow residuals in pyriforms: None Post-Swallow Residuals: no residuals Reduced Cricopharyngeal opening: No Pharyngeal Stage Comments: No aspiration or penetration identified during testing despite challenging with consecutive sips of liquid via cup and straw and varied consistencies. Timely, efficient sallow and functional mobility and strength of oral and pharyngeal swallowing components noted during exam. Recommend patient continue with regular solids and thin liquid diet, with esophageal precautions (alternating solids and liquids) to reduce globus sensation with pills. Further, recommend follow up with GI. No speech therapy intervention indicated at this time. - Esophageal Stage Cricopharyngeal Function: Normal Upper Esophageal Transit: Normal Esophageal stasis/dysmotility: No Cervical Osteophytes noted: No - Fall Risk Assessment Medications/Conditions that increase fall risks include: Antidepressants, sedatives, anti-arrhythmic, diuretic, benzodiazipenes, neuroleptics. BP regulation problems, cardiac problems, balance or gait deficits, neurological problems. Is patient considered at risk for falls: no Fall Risk Actions Taken: Pt educated on risks - Behavioral Observations During evaluation process patient: was pleasant Mental Status: Alert & Oriented X3 - Treatment / Educational Needs: Treatment/Education Needs: Treatment consisted of patient education on the role of the Speech Pathologist. Patient's plan of care and golas were communicated as well as scheduling and attendance policies. Recommendations for initial home program were shared. Patient demonstrated understanding and verbalized agreement. - Impression/Summary Laryngeal Penetration: No Tracheal Aspiration: no Effective compensatory strategies: hard swallow Patient presents with: Normal swallow at eval, s/s reflux Risk of Aspiration: Mild Risk of nutritional compromise: Mild Risk due to: GERD, Schrader's Esophagus - Recommendations NPO: no Solid diet recommendations: Regular Liquid Diet Modification: Thin Pt/Family education and followup with MD: Yes Dysphagia therapy with ELEVATOR SERVICE TECHNICIAN: yes Reflux Precautions: Taught to Patient Recommended techniques: Fully Upright During Meal, Med Crushed in Applesauce, Small Bites and Sips, Alternate Bites/Sips Supervision: Independent Information, Precautions and Recommendations: Patient (Verbal) - Time Total Time: 31 - Plan of Care Strategies to optimize patient understanding include:: ongoing assessment of educational needs, implementation of educational strategies, and re-education. - - -: Thank you for the opportunity to work with this patient and his/her family. Should you have any questions about this patient's plan or progress, I can be reached at [phone].
== END ==
LOC: RAD 08:12
PROVIDERS: ATTEND Internal Medicine Endocrinology, Diabetes & Metabolism
DX: K22.70 Barrett's esophagus without dysplasia (principal); R13.12 Dysphagia, oropharyngeal phase
CPT/HCPCS: 74230

== ENCOUNTER → 2019-10-19 | Outpatient (CLI) | payer BC, MEDICARE ==
--- NOTE | 2019-10-21 13:07 | WOMENS IMAGING REPORT ---
EXAM DESCRIPTION: 3D SCREENING MAMMO BILAT COMPLETED DATE/TIME: 10/19/2019 11:03 am REASON FOR STUDY: Z12.31 ENCOUNTER FOR SCREENING MAMMOGRAM FOR MALIGNANT NEOPLASM OF BREAST Z12.31 ENCNTR SCREEN MAMMOGRAM FOR MALIGNANT NEOPLASM OF [place] COMPARISON: 2017 EXAM PARAMETERS: Views: Standard craniocaudal and mediolateral oblique views of each breast recorded using digital acquisition and breast tomosynthesis. Read with the assistance of CAD. .[facility] - [employer] Lay Out Worker Version 9.2 LIMITATIONS: None. FINDINGS: No suspicious masses, suspicious calcifications or architectural distortion. No areas of c oncern. IMPRESSION: NEGATIVE MAMMOGRAM. BIRADS 1. BREAST DENSITY: b. There are scattered areas of fibroglandular density. BIRAD: ASSESSMENT: 1 NEGATIVE RECOMMENDATION: ROUTINE SCREENING COMMENT: The patient has been notified of the results by letter per MQSA requirements. Additional no tification policies are in place for contacting patient with suspicious or incomplete findings. Quality ID #225: The [employer] recommends an annual screening mammogram for women aged 40 years or over. This facility utilizes a reminder system to ensure that all patients receive reminder letters, and/or direct phone calls for appointments. This includes reminders for routine scr eening mammograms, diagnostic mammograms, or other Breast Imaging Interventions when appropriate. Th is patient will be placed in the appropriate reminder system. TECHNICAL DOCUMENTATION: FINDING NUMBER: (1) ASSESSMENT: (1) JOB ID: [id number] [employer]- All Rights Reserved Reading location - IP/workstation name: [email or web address]
== END ==
LOC: WI 10:37
PROVIDERS: ATTEND Specialist
DX: Z12.31 Encounter for screening mammogram for malignant neoplasm of breast (principal)
CPT/HCPCS: 77063; 77067

== ENCOUNTER → 2019-11-02 | Outpatient (CLI) | payer BC, MEDICARE ==
[2019-11-02 09:30] LABS: ALBUMIN 4.4 g/dL (3.5-5.0); ALKALINE PHOSPHATASE 78 U/L (38-126); ANION GAP 11 (5-19); ASPARTATE AMINO TRANSFERASE 22 U/L (14-36); BILIRUBIN,DIRECT 0.4 mg/dL (0.0-0.4); BILIRUBIN,TOTAL 0.5 mg/dL (0.2-1.3); BLOOD UREA NITROGEN 17 mg/dL (7-20); CALCIUM 10.4 mg/dL (8.4-10.2); CARBON DIOXIDE 30 mmol/L (22-30); CHLORIDE 99 mmol/L (98-107); GLUCOSE 131 mg/dL (75-110); POTASSIUM 3.5 mmol/L (3.6-5.0); TOTAL PROTEIN 7.6 g/dL (6.3-8.2); URIC ACID 9.7 mg/dL (2.5-7.5)
== END ==
LOC: OD 08:25
PROVIDERS: ATTEND Internal Medicine
DX: E83.51 Hypocalcemia (principal); I25.10 Atherosclerotic heart disease of native coronary artery without angina pectoris; R73.9 Hyperglycemia, unspecified
CPT/HCPCS: 36415; 80053; 83735; 84550

== ENCOUNTER → 2019-11-30 | Outpatient (CLI) | payer BC, MEDICARE ==
[2019-11-30 17:07] LABS: A TYPE INFLUENZA AG NEGATIVE (NEGATIVE); B INFLUENZA AG NEGATIVE (NEGATIVE)
== END ==
LOC: OD 16:12
PROVIDERS: ATTEND Internal Medicine
DX: J11.1 Influenza due to unidentified influenza virus with other respiratory manifestations (principal)
CPT/HCPCS: 87804

== ENCOUNTER → 2020-01-01 | Outpatient (CLI) | payer BC, MEDICARE ==
--- NOTE | 2020-01-01 13:18 | RADIOLOGY REPORT (SQ) ---
EXAM DESCRIPTION: CT SINUSES FOR ENT COMPLETED DATE/TIME: 01/01/2020 9:52 am REASON FOR STUDY: (J32.9)CHRONIC SINUSITIS, UNSPECIFIED J32.9 CHRONIC SINUSITIS, UNSPECIFIED COMPARISON: None. TECHNIQUE: Noncontrast scanning through the paranasal sinuses using bone algorithm. Reconstructed MPR images reviewed. All images stored on PACS. Images acquired for image guided surgery. All CT scanners at this facility use dose modulation, iterative reconstruction, and/or weight based d osing when appropriate to reduce radiation dose to as low as reasonably achievable (ALARA). [facility]: Dose Right [facility]: CareDose [facility]: Dose Right [facility]: Teradose 4D [facility]: [employer] RADIATION DOSE: mGy. FINDINGS: NASAL PASSAGES: Clear. No polyps or masses. OSTEOMEATAL UNITS AND NASOFRONTAL DUCTS: Patent. MAXILLARY SINUSES: Minimal polypoid mucosal thickening inferior left maxillary sinus. Otherwise cyn r. Maxillary sinus outlets are patent. ETHMOID SINUSES: Minimal right posterior ethmoid opacification. Otherwise clear. SPHENOID SINUSES: Well-pneumatized and clear. FRONTAL SINUSES: Well-pneumatized and clear. MASTOID AIR CELLS: Clear. ORBITS: Normal and symmetrical. NASAL SEPTUM: Midline. No nasal septal spurs. TEMPOROMANDIBULAR JOINTS: Normal. TURBINATES: No pneumatized turbinates. OTHER: No other significant findings. IMPRESSION: No acute or suspicious findings. Very minimal chronic sinus changes. TECHNICAL DOCUMENTATION: JOB ID: [id number] Quality ID # 436: Final reports with documentation of one or more dose reduction techniques (e.g., Au tomated exposure control, adjustment of the mA and/or kV according to patient size, use of iterative reconstruction technique) 2010 [employer]- All Rights Reserved Reading location - IP/workstation name: [email or web address]
== END ==
LOC: RAD 09:04
PROVIDERS: ATTEND Otolaryngology
DX: J32.9 Chronic sinusitis, unspecified (principal)
CPT/HCPCS: 70486

== ENCOUNTER → 2020-01-11 | Outpatient (CLI) | payer BC, MEDICARE ==
[2020-01-11 10:40] LABS: A TYPE INFLUENZA AG NEGATIVE (NEGATIVE)
[2020-01-11 10:41] LABS: B INFLUENZA AG NEGATIVE (NEGATIVE)
== END ==
LOC: RDC 09:29
PROVIDERS: ATTEND Registered Nurse
DX: Z20.828 Contact with and (suspected) exposure to other viral communicable diseases (principal)
CPT/HCPCS: 87070; 87635; 87804; 87880

== ENCOUNTER → 2020-01-20 | Outpatient (CLI) | payer BC, MEDICARE ==
--- NOTE | 2020-01-20 16:30 | RADIOLOGY REPORT (SQ) ---
EXAM DESCRIPTION: CHEST PA/LATERAL IMAGES COMPLETED DATE/TIME: 01/20/2020 3:06 pm REASON FOR STUDY: SEVERE PERSISTENT ASTHMA WITH (ACUTE) EXACERBATION COMPARISON: Two-view chest 01/24/2016 EXAM PARAMETERS: NUMBER OF VIEWS: two views TECHNIQUE: Digital Frontal and Lateral radiographic views of the chest acquired. RADIATION DOSE: NA LIMITATIONS: none FINDINGS: LUNGS AND PLEURA: No opacities, masses or pneumothorax. No pleural effusion. MEDIASTINUM AND HILAR STRUCTURES: No masses or contour abnormalities. HEART AND VASCULAR STRUCTURES: Heart normal size. No evidence for failure. BONES: No acute findings. HARDWARE: None in the chest. OTHER: No other significant finding. IMPRESSION: NO SIGNIFICANT RADIOGRAPHIC FINDING IN THE CHEST. TECHNICAL DOCUMENTATION: JOB ID: [id number] 2010 [employer]- All Rights Reserved Reading location - IP/workstation name: [email or web address]
== END ==
LOC: OD 14:56
PROVIDERS: ATTEND Family Medicine Geriatric Medicine
DX: J45.51 Severe persistent asthma with (acute) exacerbation (principal)
CPT/HCPCS: 71046

== ENCOUNTER → 2020-08-29 | Outpatient (CLI) | payer BC, MEDICARE ==
--- NOTE | 2020-08-29 10:47 | RADIOLOGY REPORT (SQ) ---
EXAM DESCRIPTION: BARIUM SWALLOW ESOPHAGUS IMAGES COMPLETED DATE/TIME: 08/29/2020 10:01 am REASON FOR STUDY: DIFFICULTY SWALLOWING R13.10 DYSPHAGIA, UNSPECIFIED COMPARISON: None. TECHNIQUE: Under fluoroscopic guidance, patient ingested effervescent granules followed by thick and thin barium. Fluoroscopic spot images and routine radiographic images acquired and stored on PACS. 12 MM BARIUM TABLET GIVEN: Yes. Slight delay in passage at the thoracic inlet. LIMITATIONS: None. FLUOROSCOPY TIME: FLUORO TIME: 2.5 minutes of fluoroscopy was used. 15 images saved to PACS. FINDINGS: NEUROMUSCULAR COORDINATION OF SWALLOW: Normal. Trace laryngeal penetration. No aspiratio n. Prevertebral soft tissue swelling present in the area of the cervical fusion hardware. This disp laces the pharynx and proximal esophagus anteriorly approximately 1 cm. ESOPHAGEAL MOTILITY: Normal peristalsis. Tertiary contractions in the distal half esophagus. No eso phageal spasm. ESOPHAGEAL MUCOSA: Normal mucosa without masses or ulceration. GASTRO-ESOPHAGEAL JUNCTION: Small sliding hiatal hernia with mild gastroesophageal reflux. Tab passe d through the GE junction without delay. NON-GI TRACT STRUCTURES: No significant finding. OTHER: No other significant finding. IMPRESSION: 1. MILD PREVERTEBRAL SOFT TISSUE SWELLING ANTERIOR TO THE CERVICAL FUSION HARDWARE DISP LACING THE PHARYNX AND PROXIMAL ESOPHAGUS ANTERIORLY 1 CM. 2. SMALL SLIDING HIATAL HERNIA WITH MILD GASTROESOPHAGEAL REFLUX. 3. TRACE LARYNGEAL PENETRATION WITHOUT ASPIRATION WITH THE THIN LIQUIDS. COMMENT: Quality ID 145: Final reports for procedures using fluoroscopy that document radiation exp osure indices, or exposure time and number of fluorographic images (if radiation exposure indices are not available) TECHNICAL DOCUMENTATION: JOB ID: [id number] 2010 [employer]- All Rights Reserved Reading location - IP/workstation name: [email or web address] [id number]
== END ==
LOC: RAD 09:14
PROVIDERS: ATTEND Physician Assistant
DX: R13.10 Dysphagia, unspecified (principal); K44.9 Diaphragmatic hernia without obstruction or gangrene; K21.9 Gastro-esophageal reflux disease without esophagitis; K22.8 Other specified diseases of esophagus
CPT/HCPCS: 74220